=== PATIENT | female | born 1935 | race African-American/Black ===

== ENCOUNTER 2016-10-29 15:59 | Inpatient (IN) | payer MEDICAID, OTHER ==
[~2016-10-29] VITALS: Ht 154.9 cm; Wt 68.0 kg
[~2016-10-29 15:59] MED LIST: AMLO10TA80 PO; ASPI-1035 PO; ATEN-42 PO; LISI-604 PO; METF-240 PO; SIMV20TA6 PO
[2016-10-29 18:19] LABS: BASOPHILS % 0.5 % (0.0-2.0); EOSINOPHILS % 2.4 % (0.0-5.0); HEMATOCRIT. 30.9 % (36.0-48.0); HEMOGLOBIN. 10.8 g/dL (12.0-16.0); LYMPHOCYTES % 12.1 % (20.0-50.0); MEAN CORPUSCULAR HEMOGLOBIN 28.5 pg (28.0-32.0); MEAN CORPUSCULAR VOLUME 81.5 fL (81.0-99.0); MEAN PLATELET VOLUME 8.2 fl (7.4-10.4); MONOCYTES % 7.2 % (2.0-8.0); NEUTROPHILS % 77.8 % (40.0-76.0); PLATELET 297 x1000/uL (130-400); RED BLOOD CELL COUNT 3.79 mill/uL (4.2-5.4); RED CELL DISTRIBUTION WIDTH 13.3 % (11.6-14.6); WHITE BLOOD COUNT 13.1 x1000/uL (4.5-11.0)
[2016-10-29 18:23] LABS: INR 1.1; PROTHROMBIN TIME 11.8 sec
[2016-10-29 18:32] LABS: ALANINE AMINOTRANSFERASE 15 IU/L (13-61); ALBUMIN 3.7 g/dL (3.4-5.0); ANION GAP 13; CALCIUM 8.9 mg/dL (8.5-10.1); CARBON DIOXIDE 27 mEq/L (21-32); CHLORIDE 96 mEq/L (98-107); INDEX HEMOLYSI 1 (1-3); INDEX ICTERIC 1 (1-4); INDEX LIPEMIC 1 (1-3); NT PRO B-TYPE NATRIURETIC PEP 356 pg/mL (5-125); TROPONIN I 0.05 ng/mL (0.00-0.04); UREA NITROGEN BLOOD 18 mg/dL (7-21); eGFR 52 mL/min (>60)
[2016-10-29 19:45] LABS: GLUCOSE URINE NEGATIVE (NEGATIVE); KETONES URINE NEGATIVE (NEGATIVE); LEUKOCYTE ESTERASE URINE NEGATIVE (NEGATIVE); NITRITE URINE NEGATIVE (NEGATIVE); OCCULT BLOOD URINE NEGATIVE (NEGATIVE); PROTEIN URINE NEGATIVE (NEGATIVE); SPECIFIC GRAVITY URINE 1.009 (1.005-1.030); UROBILINOGEN URINE 0.2 E.U./dL (0.2-1.0)
[2016-10-29 19:57] LABS: BACTERIA URINE TRACE; CLARITY URINE HAZY (CLEAR); COLOR URINE YELLOW (YELLOW); RBC URINE 0-2 /hpf (0-2); SQUAMOUS EPITHELIAL CELL URINE 1+ /lpf (RARE/1+); WBC URINE 0-2 /hpf (0-2)
[2016-10-29] MEDS ORDERED: ASPIRIN 325MG TABLET PO ONE (20:00)
[2016-10-29 22:05] VITALS: BP 137/57
[2016-10-29 22:31] VITALS: BP 132/57
[2016-10-29] MEDS ORDERED: DEXTROSE 50% WATER 50ML SYRINGE IV PRN (23:00)
[2016-10-29] MEDS ORDERED: MORPHINE SULFATE 2 MG/ML CPJ (NOT FOR IM USE) IV PRN (23:00)
[2016-10-29] MEDS ORDERED: ACETAMINOPHEN 325MG TABLET PO PRN (23:00)
[2016-10-30] VITALS: BP 132/57
[2016-10-30 04:00] VITALS: BP 112/58
[2016-10-30 06:25] LABS: BASOPHILS % 0.3 % (0.0-2.0); EOSINOPHILS % 5.3 % (0.0-5.0); HEMATOCRIT. 29.4 % (36.0-48.0); HEMOGLOBIN. 9.8 g/dL (12.0-16.0); LYMPHOCYTES % 19.5 % (20.0-50.0); MEAN CORPUSCULAR HEMOGLOBIN 27.2 pg (28.0-32.0); MEAN CORPUSCULAR HGB CONC 33.4 g/dL (31.0-37.0); MEAN CORPUSCULAR VOLUME 81.6 fL (81.0-99.0); MEAN PLATELET VOLUME 8.4 fl (7.4-10.4); MONOCYTES % 8.8 % (2.0-8.0); NEUTROPHILS % 66.1 % (40.0-76.0); PLATELET 292 x1000/uL (130-400); WHITE BLOOD COUNT 9.3 x1000/uL (4.5-11.0)
[2016-10-30 06:55] LABS: CALCIUM 8.9 mg/dL (8.5-10.1)
[2016-10-30] MEDS: INSULIN LISPRO 100 UNITS/ML SUBCUT SCH ×4 (07:54→20:28)
[2016-10-30] MEDS: BLOOD SUGAR DIAGNOSTIC STRIP TEST SCH ×4 (07:54→20:28)
[2016-10-30 08:00] VITALS: BP 103/62
[2016-10-30] MEDS: AMLODIPINE 10MG TABLET PO SCH (08:04)
[2016-10-30] MEDS: METOPROLOL TARTRATE 25MG TABLET PO SCH ×2 (08:04→20:28)
[2016-10-30] MEDS: ASPIRIN 81MG EC TABLET PO SCH (08:32)
[2016-10-30] MEDS ORDERED: ENOXAPARIN 40MG/0.4ML SYR SUBCUT SCH (09:00)
[2016-10-30] MEDS ORDERED: METFORMIN HCL 500MG TABLET PO SCH (09:00)
[2016-10-30] MEDS ORDERED: LISINOPRIL 20MG TABLET PO SCH (09:00)
[2016-10-30 12:00] VITALS: BP 113/48
[2016-10-30] MEDS: THROAT LOZENGES-BENZOCAINE/MENTH/CETYLPYRD CL LOZENGES MM PRN ×2 (13:15→17:00)
[2016-10-30] MEDS ORDERED: POTASSIUM CHLORIDE INJ 40 MEQ in DEXT 5% WATER 250 ML IV NR (14:00)
[2016-10-30 16:00] VITALS: BP 123/51
[2016-10-30] MEDS: SODIUM CHLORIDE 0.9% 1,000 ML IV SCH (16:47)
[2016-10-30] MEDS: AZITHROMYCIN 500 MG in DEXT 5% WATER 250 ML IV SCH (18:41)
[2016-10-30 20:00] VITALS: BP 103/55
[2016-10-30] MEDS: ATORVASTATIN CALCIUM 10MG TABLET PO SCH (20:25)
[2016-10-31] VITALS (7 sets, daily range): BP systolic 105–143; BP diastolic 45–68
[2016-10-31] MEDS: SODIUM CHLORIDE 0.9% 1,000 ML IV SCH ×2 (04:10→19:03)
[2016-10-31] MEDS: BLOOD SUGAR DIAGNOSTIC STRIP TEST SCH ×4 (07:40→21:21)
[2016-10-31] MEDS: INSULIN LISPRO 100 UNITS/ML SUBCUT SCH ×4 (08:10→21:20)
[2016-10-31] MEDS: METOPROLOL TARTRATE 25MG TABLET PO SCH ×2 (09:00→21:18)
[2016-10-31] MEDS: ENOXAPARIN 30MG/0.3ML SYR SUBCUT SCH (09:00)
[2016-10-31] MEDS: AMLODIPINE 10MG TABLET PO SCH (09:00)
[2016-10-31] MEDS: ASPIRIN 81MG EC TABLET PO SCH (09:03)
[2016-10-31] MEDS: AZITHROMYCIN 500 MG in DEXT 5% WATER 250 ML IV SCH (18:05)
[2016-10-31] MEDS: ATORVASTATIN CALCIUM 10MG TABLET PO SCH (21:17)
[2016-11-01 04:00] VITALS: BP 120/42
[2016-11-01] MEDS: BLOOD SUGAR DIAGNOSTIC STRIP TEST SCH ×2 (07:40→12:35)
[2016-11-01] MEDS: INSULIN LISPRO 100 UNITS/ML SUBCUT SCH ×2 (08:10→12:36)
[2016-11-01 08:16] VITALS: BP_SYST 118; BP_SYST 122; BP_DIAS 60
[2016-11-01] MEDS: METOPROLOL TARTRATE 25MG TABLET PO SCH (09:10)
[2016-11-01] MEDS: ASPIRIN 81MG EC TABLET PO SCH (09:10)
[2016-11-01] MEDS: AMLODIPINE 10MG TABLET PO SCH (09:11)
[2016-11-01] MEDS: ENOXAPARIN 30MG/0.3ML SYR SUBCUT SCH (09:11)
[2016-11-01 12:08] VITALS: BP 113/50
[2016-11-01] MEDS ORDERED: SIMV20TA6 PO (13:12)
[2016-11-01] MEDS ORDERED: AZIT500T5 PO (13:12)
[2016-11-01 16:01] VITALS: BP 117/68
[2016-11-01] MEDS ORDERED: AZITHROMYCIN 500 MG TABLET PO SCH (18:00)
== END 2016-11-01 16:00 | disposition home or self-care (01) | DRG 46 ==
LOC: ER 16:00 → 7WST 20:51
PROVIDERS: ADMIT Internal Medicine; ATTEND Internal Medicine
DX: I65.22 Occlusion and stenosis of left carotid artery (principal); N17.9 Acute kidney failure, unspecified; I27.2 Other secondary pulmonary hypertension; G90.8 Other disorders of autonomic nervous system; I11.0 Hypertensive heart disease with heart failure; I50.40 Unspecified combined systolic (congestive) and diastolic (congestive) heart failure; E11.9 Type 2 diabetes mellitus without complications; D64.9 Anemia, unspecified; E78.5 Hyperlipidemia, unspecified; G43.909 Migraine, unspecified, not intractable, without status migrainosus; H26.9 Unspecified cataract; I70.0 Atherosclerosis of aorta; K64.9 Unspecified hemorrhoids; M19.90 Unspecified osteoarthritis, unspecified site; R35.1 Nocturia; J32.3 Chronic sphenoidal sinusitis; J32.2 Chronic ethmoidal sinusitis; E66.9 Obesity, unspecified; Z68.28 Body mass index [BMI] 28.0-28.9, adult; Z79.82 Long term (current) use of aspirin; Z79.84 Long term (current) use of oral hypoglycemic drugs; Z79.899 Other long term (current) drug therapy; W18.30XA Fall on same level, unspecified, initial encounter; Y93.89 Activity, other specified; Y92.89 Other specified places as the place of occurrence of the external cause; Y99.8 Other external cause status; Z98.42 Cataract extraction status, left eye; E86.0 Dehydration
CPT/HCPCS: 36415; 70450; 70551; 71010; 73502; 73562; 78582; 80048; 80053; 80061; 81001; 82962; 83036; 83880; 84484; 85025; 85610; 87804; 93005; 93306; 93880; 97116; 97162; 99285; A9558; C1893; J0456; J1650; J1815; J3480; J7030; J7050; J7060

== ENCOUNTER 2017-08-23 09:00 | Emergency (ER) | payer MEDICAID ==
[~2017-08-23] VITALS: Ht 152.4 cm; Wt 64.0 kg
[~2017-08-23 09:00] MED LIST changes: -ASPI-1035 PO; +ASPI-1159 PO; +AZIT500T5 PO; -METF-240 PO; +METF500T4 PO
[2017-08-23 12:43] VITALS: BP 143/75
== END 2017-08-23 12:44 | disposition home or self-care (01) ==
LOC: ER 09:37
DX: R05 Cough (principal); R50.9 Fever, unspecified; E11.9 Type 2 diabetes mellitus without complications; E78.00 Pure hypercholesterolemia, unspecified; I10 Essential (primary) hypertension; Z79.82 Long term (current) use of aspirin
CPT/HCPCS: 71010; 99283